=== PATIENT | male | born 1975 | race Caucasian/White ===

== ENCOUNTER 2017-11-12 20:28 | Emergency (ER) | payer OTHER ==
[2017-11-12 21:21] LABS: BASOPHIL % 0.6 % (0-2); PLATELET COUNT 251 x10^3mcL (130-400); RED CELL DISTRIBUTION WIDTH 13.8 % (11.5-14.5)
[2017-11-12 21:32] LABS: CALCIUM 8.4 mg/dL (8.5-10.1); CARBON DIOXIDE 29.4 mmol/L (21-32); CHLORIDE SERUM 102 mmol/L (98-107); CREATININE SERUM 1.1 mg/dL (0.7-1.3); GFR1 > 60 mL/min; GLUCOSE SERUM 105 mg/dL (74-106); SODIUM SERUM 141 mmol/L (136-145)
[2017-11-12 21:36] LABS: ALKALINE PHOSPHATASE 67 U/L (46-116); ALT/SGPT 38 U/L (16-63); AST/SGOT 17 U/L (15-37); BILIRUBIN TOTAL 0.3 mg/dL (0.20-1.00); LIPASE 109 IU/L (73-393); TOTAL PROTEIN, SERUM 7.4 g/dL (6.4-8.2)
[2017-11-12 21:37] LABS: CHOLESTEROL 229 mg/dL (<200); CHOLESTEROL/HDL RATIO 7.2; HDL CHOLESTEROL 32 mg/dL (40-60); TRIGLYCERIDES 233 mg/dL (<150)
[2017-11-12 21:56] LABS: T3 TOTAL 1.07 ng/mL
[2017-11-12 22:20] LABS: FREE T4 0.98 ng/dL (0.76-1.46); FREE THYROXINE INDEX 2.4 ug/dL (1.4-4.5); T4(THYROXINE) 7.2 ug/dL (4.7-13.3)
[2017-11-12 22:38] VITALS: BP 131/85
== END 2017-11-12 22:38 | disposition home or self-care (01) ==
LOC: ED 20:28
PROVIDERS: Specialist
DX: R10.13 Epigastric pain (principal); E78.5 Hyperlipidemia, unspecified; J45.909 Unspecified asthma, uncomplicated; G43.909 Migraine, unspecified, not intractable, without status migrainosus; R07.2 Precordial pain
CPT/HCPCS: 36415; 83880; 84439; Q0092

== ENCOUNTER 2017-12-17 04:07 | Emergency (ER) | payer OTHER ==
[~2017-12-17] VITALS: Ht 170.2 cm; Wt 103.4 kg
[2017-12-17 05:21] LABS: BASOPHIL % 0.3 % (0-2); PLATELET COUNT 261 x10^3mcL (130-400); RED CELL DISTRIBUTION WIDTH 14.2 % (11.5-14.5)
[2017-12-17 05:33] LABS: CALCIUM 9.4 mg/dL (8.5-10.1); CHLORIDE SERUM 103 mmol/L (98-107); CREATININE SERUM 1.3 mg/dL (0.7-1.3); GFR1 > 60 mL/min; GLUCOSE SERUM 128 mg/dL (74-106); POTASSIUM SERUM 4.5 mmol/L (3.5-5.1); SODIUM SERUM 140 mmol/L (136-145)
[2017-12-17 05:42] LABS: ALBUMIN 4.6 g/dL (3.4-5.0); ALKALINE PHOSPHATASE 87 U/L (46-116); ALT/SGPT 67 U/L (16-63); AMYLASE 59 U/L (25-115); AST/SGOT 27 U/L (15-37); LIPASE 90 IU/L (73-393)
[2017-12-17 05:44] LABS: TOTAL PROTEIN, SERUM 8.7 g/dL (6.4-8.2)
[2017-12-17 06:04] VITALS: BP 134/81
== END 2017-12-17 06:04 | disposition home or self-care (01) ==
LOC: ED 04:07
PROVIDERS: Emergency Medicine
DX: R10.9 Unspecified abdominal pain (principal); R11.2 Nausea with vomiting, unspecified; R19.7 Diarrhea, unspecified
CPT/HCPCS: 83880; J1885; J2405; J7030

== ENCOUNTER 2018-04-12 08:16 | Emergency (ER) | payer OTHER ==
[~2018-04-12] VITALS: Ht 167.6 cm; Wt 109.3 kg
[2018-04-12 08:18] VITALS: Ht 167.6 cm; Wt 109.3 kg
[2018-04-12 09:31] VITALS: BP 118/82
== END 2018-04-12 09:31 | disposition home or self-care (01) ==
LOC: ED 08:16
DX: S16.1XXA Strain of muscle, fascia and tendon at neck level, initial encounter (principal); J45.909 Unspecified asthma, uncomplicated; G43.909 Migraine, unspecified, not intractable, without status migrainosus; E78.00 Pure hypercholesterolemia, unspecified; W18.39XA Other fall on same level, initial encounter; Y93.89 Activity, other specified; Y92.89 Other specified places as the place of occurrence of the external cause; Y99.8 Other external cause status
CPT/HCPCS: J1885

== ENCOUNTER 2019-03-05 08:33 | Emergency (ER) | payer OTHER ==
[~2019-03-05] VITALS: Ht 177.8 cm; Wt 112.0 kg
[2019-03-05 08:48] VITALS: Ht 177.8 cm; Wt 112.0 kg
[2019-03-05 09:25] LABS: C REACTIVE PROTEIN 0.3 mg/dL (<=0.9); URIC ACID 7.4 mg/dL (3.5-7.2)
[2019-03-05 10:38] VITALS: BP 131/86
== END 2019-03-05 10:38 | disposition home or self-care (01) ==
LOC: ED 08:33
PROVIDERS: Emergency Medicine
DX: M10.9 Gout, unspecified (principal); J45.909 Unspecified asthma, uncomplicated; G43.909 Migraine, unspecified, not intractable, without status migrainosus; E78.00 Pure hypercholesterolemia, unspecified
CPT/HCPCS: Q0092